=== PATIENT | female | born 1955 | race Asian ===

== ENCOUNTER 2018-06-29 10:43 | Day surgery (SDC) | payer BC, OTHER ==
[~2018-06-29] VITALS: Ht 152.4 cm; Wt 76.9 kg
[2018-06-29] MEDS ORDERED: LOSARTAN (12:29)
[2018-06-29 12:30] VITALS: Ht 152.4 cm; Wt 76.9 kg
[2018-06-29 12:52] VITALS: BP 119/71; PULSE 69; RESP 18
[2018-06-29] MEDS ORDERED: MIDAZOLAM 1 MG/ML 2 ML INJ ONE ×2 (14:30)
[2018-06-29] MEDS ORDERED: FENTAnyl 50 MCG/ML VIAL ONE (14:30)
== END 2018-06-29 15:44 | disposition home or self-care (01) ==
LOC: GIL 10:43
PROVIDERS: ATTEND Internal Medicine Gastroenterology
DX: Z12.11 Encounter for screening for malignant neoplasm of colon (principal); K64.8 Other hemorrhoids; Z86.010 Personal history of colon polyps
CPT/HCPCS: 45378; J2250; J3010; Z7610